=== PATIENT | female | born 1980 | race Caucasian/White ===

== ENCOUNTER 2019-11-06 09:25 | Emergency (ER) | payer MEDICAID ==
[2019-11-06] MEDS ORDERED: KETOROLAC 60 MG/2 ML VIAL IM STA (10:27)
[2019-11-06 10:48] LABS: BILIRUBIN,URINE NEGATIVE (NEGATIVE); GLUCOSE, URINE (UA) NEGATIVE (NEGATIVE); KETONES,URINE (UA) NEGATIVE (NEGATIVE); LEUKOCYTE ESTERASE, URINE NEGATIVE (NEGATIVE); NITRITE,URINE NEGATIVE (NEGATIVE); OCCULT BLOOD,URINE TRACE-LYSE (NEGATIVE); PROTEIN,URINE NEGATIVE (NEGATIVE); UROBILINOGEN,URINE 0.2 (NORMAL) E.U./dL (NORMAL)
[2019-11-06 10:49] LABS: CLARITY,URINE CLEAR (CLEAR)
[2019-11-06 10:51] LABS: HCG UR QUAL NEGATIVE
[2019-11-06 11:01] LABS: BASOPHILS % (AUTO) 0.9 %; EOSINOPHILS # (AUTO) 0.1 10^3/uL (0.0-0.7); EOSINOPHILS % (AUTO) 2.8 %; HGB - HEMOGLOBIN 13.6 g/dL (12.0-16.0); LYMPHOCYTES # (AUTO) 1.5 10^3/uL (1.5-3.5); LYMPHOCYTES % (AUTO) 33.3 %; MEAN CORPUSCULAR HEMOGLOBIN 30.7 pg (27.0-31.0); MEAN CORPUSCULAR HGB CONC 33.3 g/dL (32.0-36.0); MEAN CORPUSCULAR VOLUME 92.3 fL (81.0-99.0); MEAN PLATELET VOLUME 8.2 fL (7.9-10.8); MONOCYTES # (AUTO) 0.2 10^3/uL (0.0-1.0); MONOCYTES % (AUTO) 5.2 %; NEUTROPHILS # (AUTO) 2.6 10^3/uL (1.5-6.6); NEUTROPHILS % (AUTO) 57.6 %; PLT - PLATELET COUNT 213 10^3/uL (130-450); RED BLOOD COUNT 4.43 10^6/uL (4.20-5.40); RED CELL DISTRIBUTION WIDTH 11.9 % (12.0-15.0); WHITE BLOOD COUNT 4.6 x10^3/uL (4.8-10.8)
[2019-11-06 11:14] LABS: ALBUMIN 5.4 g/dL (3.2-5.5); ALBUMIN/GLOBULIN RATIO 2.2 (1.0-2.2); CALCIUM 9.3 mg/dL (8.5-10.3); CREATININE 0.9 mg/dL (0.4-1.0); TOTAL PROTEIN 7.9 g/dL (6.7-8.2)
--- NOTE | 2019-11-06 11:44 | CT Report ---
PROCEDURE: HEAD WO INDICATIONS: headache, confusion left sided TECHNIQUE: Noncontrast 4.5 mm thick angled axial sections acquired from the foramen magnum to the vertex. For r adiation dose reduction, the following was used: automated exposure control, adjustment of mA and/or kV according to patient size. COMPARISON: None. FINDINGS: Image quality: Excellent. CSF spaces: Basal cisterns are patent. No extra-axial fluid collections. Ventricles are normal in size and shape. Brain: No midline shift. No intracranial masses or hemorrhage. Solitario-white matter interface is norm al. Skull and face: Calvarium and visualized facial bones are intact, without suspicious lesions. Sinuses: Visualized sinuses and mastoids are clear. IMPRESSION: No acute intracranial abnormality. Reviewed by: Shayy Tellez MD on 11/06/2019 11:43 AM PDT Approved by: Shayy Tellez MD on 11/06/2019 11:43 AM PDT Station ID: [id number]
--- NOTE | 2019-11-06 12:13 | ED Physician Documentation ---
PD HPI HEADACHE - Stated complaint Stated Complaint: HIGH BP/HEADACHE - Chief complaint Chief Complaint: Cardiac - History obtained from History obtained from: Patient - History of Present Illness Timing - onset: Enter time (1500), Yesterday Timing - onset during: Light activity Timing - duration: Days (1) Timing - details: Gradual onset, Still present Location: Left Quality: Throbbing Associated symptoms: No: Fever, Stiff neck, Nausea, Vomiting, Weakness, Numbness, Syncope, Seizure, Eye pain, Vision changes Improved by: Rest, Dark room Worsened by: Moving Contributing factors: Hypertension Similar symptoms before: Has not had sx before Recently seen: Not recently seen - Additional information Additional information: 39-year-old female with a 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 She has been on some Paxil for the last year and she forgot to take her dose yesterday morning and by midafternoon she is developed this headache in the left side of her head and she noted her blood pressure to be elevated. When her blood pressure did not come down and her headache persisted this morning she is come to the emergency department she remembers thinking that she did not take her Paxil yesterday and she got her purse out to take her Paxil and then she got distracted she does pretty certain she did not take her Paxil this morning either. Review of Systems Constitutional: denies: Fever Eyes: denies: Decreased vision Ears: denies: Ear pain Nose: denies: Congestion Throat: denies: Sore throat Cardiac: denies: Chest pain / pressure, Palpitations Respiratory: denies: Dyspnea, Cough GI: denies: Abdominal Pain, Nausea, Vomiting : denies: Dysuria, Frequency Skin: denies: Rash Musculoskeletal: reports: Neck pain. denies: Back pain, Extremity pain Neurologic: reports: Headache. denies: Generalized weakness, Focal weakness, Numbness, Head injury, LOC PD PAST MEDICAL HISTORY - Past Medical History Past Medical History: No - Past Surgical History Past Surgical History: No - Present Medications Home Medications: Ambulatory Orders Medication Instructions Recorded Confirmed Cyclobenzaprine [Flexeril] 10 mg PO TID PRN #20 tablet 11/06/19 Hydrocodone/Acetaminophen 1 - 2 each PO Q6H PRN #14 tablet 11/06/19 [Hydrocodon-Acetaminophen 5-325] - Allergies Allergies/Adverse Reactions: Allergies Allergy/AdvReac Type Severity Reaction Status Date / Time No Known Drug Allergies Allergy Verified 11/06/19 09:32 - Social History Does the pt smoke?: No Smoking Status: Never smoker Does the pt drink ETOH?: No Does the pt have substance abuse?: No PD ED PE NORMAL - Vitals Vital signs reviewed: Yes (hypertensive) - General General: Alert and oriented X 3, No acute distress, Well developed/nourished - HEENT HEENT: Atraumatic, PERRL, EOMI, Ears normal, Moist mucous membranes, Pharynx benign, Dentition benign - Neck Neck: Supple, no meningeal sign, No bony TTP, Other (There is tenderness along the trapezius into the insertion to the occiput. 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, No motor deficit, No sensory deficit, Normal speech Eye Opening: Spontaneous Motor: Obeys Commands Verbal: Oriented GCS Score: 15 - Psych Psych: Normal mood, Normal affect Results - Vitals Vitals: Vital Signs - 24 hr 11/06/19 11/06/19 11/06/19 09:32 09:36 11:36 Temperature 36.8 C Heart Rate 84 69 Respiratory 16 14 Rate Blood Pressure 140/90 H 132/89 H Blood Pressure 157/109 H [Left] O2 Saturation 99 99 11/06/19 12:37 Temperature 36.8 C Heart Rate 70 Respiratory 16 Rate Blood Pressure 135/75 H Blood Pressure [Left] O2 Saturation 99 Oxygen O2 Source Room air - Labs Labs: Laboratory Tests 11/06/19 11/06/19 11/06/19 10:41 10:56 10:56 WBC 4.6 L RBC 4.43 Hgb 13.6 Hct 40.9 MCV 92.3 MCH 30.7 MCHC 33.3 RDW 11.9 L Plt Count 213 MPV 8.2 Neut # (Auto) 2.6 Lymph # (Auto) 1.5 [place] # (Auto) 0.2 Eos # (Auto) 0.1 Baso # (Auto) 0.0 Absolute Nucleated RBC 0.00 Nucleated RBC % 0.0 Sodium 137 Potassium 3.8 Chloride 100 L Carbon Dioxide 27 Anion Gap 10.0 BUN 15 Creatinine 0.9 Estimated GFR (MDRD) 70 L Glucose 91 Calcium 9.3 Total Bilirubin 1.0 AST 19 ALT 18 Alkaline Phosphatase 57 Total Protein 7.9 Albumin 5.4 Globulin 2.5 Albumin/Globulin Ratio 2.2 Lipase 33 Urine Color YELLOW Urine Clarity CLEAR Urine pH 7.0 Ur Specific [place] 1.010 Urine Protein NEGATIVE Urine Glucose (UA) NEGATIVE Urine Ketones NEGATIVE Urine Occult Blood TRACE-LYSE Urine Nitrite NEGATIVE Urine Bilirubin NEGATIVE Urine Urobilinogen 0.2 (NORMAL) Ur Leukocyte Esterase NEGATIVE Ur Microscopic Review NOT INDICATED Urine Culture Comments NOT INDICATED Urine HCG, Qual NEGATIVE - Rads (name of study) CT head Radiology: Prelim report reviewed (Impression: No acute intracranial abnormality.), EMP read indepedently, See rad report PD MEDICAL DECISION MAKING - ED course Complexity details: reviewed results, re-evaluated patient, considered differential, d/w patient ED course: 39-year-old female with a headache nausea and difficulty concentrating is concerned with pain in her neck radiating into her head and hypertension. On evaluation the patient does appear to have greater occipital neuritis with tension in the trapezius pinching the site at the insertion to the occiput. I suspect this is the reason for her headache.I thought it reasonable to do the CT scan of her head and this study was of course without specific findings.This was especially reassuring to the patient. She did get a dose of Toradol with some improvement in her headache. The patient is complaining of some difficulty in concentrating and generally having a hard time describing her symptoms. She has discontinued her Paxil accidentally 2 days ago and I suspect this may be a portion of her issue. She has taken her own Paxil here in the emergency department and over the course of her work-up she improves. Departure - Departure Disposition: 01 Home, Self Care Clinical Impression: Tension headache, Selective serotonin reuptake inhibitor (SSRI) discontinuation syndrome Condition: Stable Instructions: SSRIs, ED Headache Tension Follow-Up: Uriel Buenrostro MD [Primary Care Provider] - Prescriptions: Cyclobenzaprine [Flexeril] 10 mg PO TID PRN #20 tablet PRN Reason: Spasms Hydrocodone/Acetaminophen [Hydrocodon-Acetaminophen 5-325] 1 - 2 each PO Q6H PRN #14 tablet PRN Reason: pain Discharge Date/Time: 11/06/19 12:39
[2019-11-06 12:38] VITALS: BP 135/75
== END 2019-11-06 12:39 | disposition home or self-care (01) ==
LOC: ED 09:25
DX: G44.209 Tension-type headache, unspecified, not intractable (principal); M54.2 Cervicalgia; T43.226A Underdosing of selective serotonin reuptake inhibitors, initial encounter; Z91.138 Patient's unintentional underdosing of medication regimen for other reason; I10 Essential (primary) hypertension
CPT/HCPCS: 36415; 70450; 80053; 81001; 81003; 81025; 83690; 85025; 87086; 96372; 99284

== ENCOUNTER 2020-02-29 16:36 | Outpatient (CLI) | payer MEDICAID | END 2020-02-29 16:37 | disposition home or self-care (01) | LOC: COV 16:36 | PROVIDERS: ATTEND Family Medicine | DX: R11.2 Nausea with vomiting, unspecified (principal); J02.9 Acute pharyngitis, unspecified; M79.10 Myalgia, unspecified site; R53.83 Other fatigue; Z20.828 Contact with and (suspected) exposure to other viral communicable diseases ==

== ENCOUNTER 2020-04-19 08:00 | Outpatient (CLI) | payer MEDICAID | END 2020-04-19 23:59 | LOC: LAB.N 08:00 | PROVIDERS: ATTEND Physician Assistant Medical | DX: N30.00 Acute cystitis without hematuria (principal) | CPT/HCPCS: 87086; 87181 ==

== ENCOUNTER 2020-04-19 11:45 | Outpatient (CLI) | payer MEDICAID | END 2020-04-19 23:59 | disposition home or self-care (01) | LOC: LAB.R 11:45 | PROVIDERS: ATTEND Physician Assistant Medical | DX: N30.00 Acute cystitis without hematuria (principal) | CPT/HCPCS: 81599; 87491; 87591 ==

== ENCOUNTER 2020-10-26 12:08 | Outpatient (CLI) | payer OTHER ==
[2020-10-26 12:26] LABS: BASOPHILS % (AUTO) 0.6 %; EOSINOPHILS # (AUTO) 0.2 10^3/uL (0.0-0.7); EOSINOPHILS % (AUTO) 2.3 %; HCT - HEMATOCRIT 39.2 % (37.0-47.0); HGB - HEMOGLOBIN 13.3 g/dL (12.0-16.0); LYMPHOCYTES # (AUTO) 1.8 10^3/uL (1.5-3.5); LYMPHOCYTES % (AUTO) 27.7 %; MEAN CORPUSCULAR HEMOGLOBIN 30.7 pg (27.0-31.0); MEAN CORPUSCULAR HGB CONC 33.9 g/dL (32.0-36.0); MEAN CORPUSCULAR VOLUME 90.5 fL (81.0-99.0); MEAN PLATELET VOLUME 8.7 fL (7.9-10.8); MONOCYTES # (AUTO) 0.5 10^3/uL (0.0-1.0); MONOCYTES % (AUTO) 7.1 %; PLT - PLATELET COUNT 258 10^3/uL (130-450); RED BLOOD COUNT 4.33 10^6/uL (4.20-5.40); RED CELL DISTRIBUTION WIDTH 11.9 % (12.0-15.0); WHITE BLOOD COUNT 6.5 x10^3/uL (4.8-10.8)
[2020-10-26 12:43] LABS: ALBUMIN 4.6 g/dL (3.2-5.5); ALBUMIN/GLOBULIN RATIO 1.4 (1.0-2.2); BILIRUBIN,TOTAL 0.8 mg/dL (0.2-1.0); CALCIUM 9.4 mg/dL (8.5-10.3); CREATININE 0.8 mg/dL (0.4-1.0)
[2020-10-26 12:54] LABS: THYROID STIMULATING HORMONE 1.44 uIU/mL (0.34-5.60)
== END 2020-10-26 12:09 | disposition home or self-care (01) ==
LOC: LAB 12:08
PROVIDERS: ATTEND Family Medicine
DX: F32.9 Major depressive disorder, single episode, unspecified (principal); F41.9 Anxiety disorder, unspecified
CPT/HCPCS: 36415; 80053; 84443; 85025

== ENCOUNTER 2020-11-10 07:27 | Outpatient (CLI) | payer OTHER ==
--- NOTE | 2020-11-10 09:31 | Ultrasound Report ---
PROCEDURE: Pelvic w/Transvaginal INDICATIONS: IUD SURVEILLANCE TECHNIQUE: Real-time scanning was performed of the pelvic organs, with image documentation. Additional endovagi nal scanning was necessary due to incomplete visualization of the adnexal and endometrial structures by transabdominal scanning. COMPARISON: None. FINDINGS: No pathologic free abdominal or pelvic fluid. Uterus: Uterus is normal in size at 3.5 x 4.7 x 7.8 cm. IJ is in normal expected position. No uterin e mass. The endometrium measures 6 mm in combined thickness. Ovaries: Numerous subcentimeter follicles are the peripheral aspect of both ovaries (greater than 12 and each ovary). No solid adnexal or ovarian mass. IMPRESSION: Normal position of IUD. Numerous subcentimeter cysts at the peripheral aspect of both ovaries, findings which suggest a cysti c ovarian syndrome in the appropriate clinical setting. Reviewed by: Andrea Cabrera MD on 11/10/2020 9:30 AM PDT Approved by: Andrea Cabrera MD on 11/10/2020 9:30 AM PDT Station ID: [id number]
== END 2020-11-10 07:28 | disposition home or self-care (01) ==
LOC: DI 07:27
PROVIDERS: ATTEND Family Medicine
DX: Z30.431 Encounter for routine checking of intrauterine contraceptive device (principal); N83.202 Unspecified ovarian cyst, left side; N83.201 Unspecified ovarian cyst, right side

== ENCOUNTER 2020-12-08 15:20 | Emergency (ER) | payer OTHER ==
[2020-12-08 15:55] LABS: BILIRUBIN,URINE NEGATIVE (NEGATIVE); GLUCOSE, URINE (UA) NEGATIVE (NEGATIVE); KETONES,URINE (UA) NEGATIVE (NEGATIVE); LEUKOCYTE ESTERASE, URINE NEGATIVE (NEGATIVE); NITRITE,URINE NEGATIVE (NEGATIVE); OCCULT BLOOD,URINE NEGATIVE (NEGATIVE); PROTEIN,URINE NEGATIVE (NEGATIVE); UROBILINOGEN,URINE 0.2 (NORMAL) E.U./dL (NORMAL)
[2020-12-08 15:56] LABS: BASOPHILS # (AUTO) 0.1 10^3/uL (0.0-0.1); BASOPHILS % (AUTO) 0.8 %; EOSINOPHILS # (AUTO) 0.1 10^3/uL (0.0-0.7); EOSINOPHILS % (AUTO) 2.2 %; LYMPHOCYTES # (AUTO) 2.2 10^3/uL (1.5-3.5); MEAN CORPUSCULAR HGB CONC 33.3 g/dL (32.0-36.0); MEAN CORPUSCULAR VOLUME 90.1 fL (81.0-99.0); MEAN PLATELET VOLUME 8.5 fL (7.9-10.8); MONOCYTES # (AUTO) 0.4 10^3/uL (0.0-1.0); MONOCYTES % (AUTO) 6.3 %; NEUTROPHILS # (AUTO) 3.6 10^3/uL (1.5-6.6); NEUTROPHILS % (AUTO) 56.5 %; PLT - PLATELET COUNT 249 10^3/uL (130-450); RED BLOOD COUNT 4.33 10^6/uL (4.20-5.40); RED CELL DISTRIBUTION WIDTH 12.1 % (12.0-15.0); WHITE BLOOD COUNT 6.4 x10^3/uL (4.8-10.8)
[2020-12-08 15:58] LABS: CLARITY,URINE CLEAR (CLEAR); HCG UR QUAL NEGATIVE
[2020-12-08 16:10] LABS: ALBUMIN 4.7 g/dL (3.2-5.5); ALBUMIN/GLOBULIN RATIO 1.3 (1.0-2.2); BILIRUBIN,TOTAL 0.8 mg/dL (0.2-1.0); CALCIUM 9.4 mg/dL (8.5-10.3); CREATININE 0.9 mg/dL (0.4-1.0); POTASSIUM 4.1 mmol/L (3.5-5.0); TOTAL PROTEIN 8.3 g/dL (6.7-8.2)
--- NOTE | 2020-12-08 16:49 | ED Physician Documentation ---
PD HPI ABD PAIN - Stated complaint Stated Complaint: ABD PX - Chief complaint Chief Complaint: Abd Pain - History obtained from History obtained from: Patient - Additional information Additional information: 40-year-old woman with 5-year-old IUD, Mirena presents with increasing left pelvic pain. Is been going on for a few weeks but is acutely worse over the last few days. She has a known cyst versus follicles on that side. Her primary said cyst, her [employer] rep said follicles. Her primary was going to remove her IUD but could not find the strings. Subsequently an ultrasound showed it in no rmal position, and went to see the [employer] rep about that but [employer] rep did no exam and the IUD is still in place and she would like it removed. Declines pain medication. Sent here from urgent care to evaluate for potential torsion. Review of Systems Ten Systems: 10 systems reviewed and negative Constitutional: reports: Reviewed and negative Throat: reports: Reviewed and negative Cardiac: reports: Reviewed and negative PD PAST MEDICAL HISTORY - Past Surgical History Past Surgical History: No - Present Medications Home Medications: Ambulatory Orders Medication Instructions Recorded Confirmed Cyclobenzaprine [Flexeril] 10 mg PO TID PRN #20 tablet 11/06/19 Hydrocodone/Acetaminophen 1 - 2 each PO Q6H PRN #14 tablet 11/06/19 [Hydrocodon-Acetaminophen 5-325] - Allergies Allergies/Adverse Reactions: Allergies Allergy/AdvReac Type Severity Reaction Status Date / Time No Known Drug Allergies Allergy Verified 12/08/20 15:37 - Social History Does the pt smoke?: No Smoking Status: Never smoker Does the pt drink ETOH?: No Does the pt have substance abuse?: No PD ED PE NORMAL - Vitals Vital signs reviewed: Yes - General General: Alert and oriented X 3, No acute distress - HEENT HEENT: PERRL, EOMI - Neck Neck: Supple, no meningeal sign, No bony TTP - Cardiac Cardiac: RRR, No murmur - Respiratory Respiratory: No respiratory distress, Clear bilaterally - Abdomen Abdomen: Other (Mild left pelvic tenderness without surgical signs) - Female Female : Other (Pelvic exam done with Yuki LEDESMA present and chaperoning. Nontender on bimanual exam, she requested her IUD removed and queried 3 times if she was sure and she did and was removed during exam.) - Back Back: No CVA TTP, No spinal TTP - Derm Derm: Normal color, Warm and dry - Extremities Extremities: No edema, No calf tenderness / cord - Neuro Neuro: Alert and oriented X 3, Normal speech Results - Vitals Vitals: Vital Signs - 24 hr 12/08/20 15:35 Temperature 35.9 C L Heart Rate 71 Respiratory 14 Rate Blood Pressure 139/92 H O2 Saturation 99 Oxygen O2 Source Room air - Labs Labs: Laboratory Tests 12/08/20 12/08/20 12/08/20 15:39 15:52 15:52 WBC 6.4 RBC 4.33 Hgb 13.0 Hct 39.0 MCV 90.1 MCH 30.0 MCHC 33.3 RDW 12.1 Plt Count 249 MPV 8.5 Neut # (Auto) 3.6 Lymph # (Auto) 2.2 [place] # (Auto) 0.4 Eos # (Auto) 0.1 Baso # (Auto) 0.1 Absolute Nucleated RBC 0.00 Nucleated RBC % 0.0 Sodium 133 L Potassium 4.1 Chloride 97 L Carbon Dioxide 26 Anion Gap 10.0 BUN 14 Creatinine 0.9 Estimated GFR (MDRD) 70 L Glucose 99 Calcium 9.4 Total Bilirubin 0.8 AST 23 ALT 26 Alkaline Phosphatase 70 Total Protein 8.3 H Albumin 4.7 Globulin 3.6 Albumin/Globulin Ratio 1.3 Lipase 26 Urine Color YELLOW Urine Clarity CLEAR Urine pH 7.0 Ur Specific [place] 1.010 Urine Protein NEGATIVE Urine Glucose (UA) NEGATIVE Urine Ketones NEGATIVE Urine Occult Blood NEGATIVE Urine Nitrite NEGATIVE Urine Bilirubin NEGATIVE Urine Urobilinogen 0.2 (NORMAL) Ur Leukocyte Esterase NEGATIVE Ur Microscopic Review NOT INDICATED Urine Culture Comments NOT INDICATED Urine HCG, Qual NEGATIVE PD MEDICAL DECISION MAKING - ED course ED course: 40-year-old woman presents with ongoing pelvic issues now worse. 1 concern is that for torsion but there is no evidence of that on ultrasound. Pelvic ultrasound was grossly normal. She wanted her IUD removed and after that was removed she felt like she was improving. Departure - Departure Disposition: 01 Home, Self Care Clinical Impression: Pelvic pain, Encounter for IUD removal Condition: Good Record reviewed to determine appropriate education?: Yes Instructions: ED Pelvic Pain [facility] Comments: Either way follow-up with your [employer] rep for consideration of repeat exam and also permanent control. Return for new or worsening symptoms. Ibuprofen as needed for pain.
--- NOTE | 2020-12-08 18:23 | Ultrasound Report ---
PROCEDURE: Pelvic w/Transvag+Doppler Comp INDICATIONS: Pelvic pain TECHNIQUE: Real-time scanning was performed of the pelvic organs, with image documentation. Additional endovagi nal scanning was necessary due to incomplete visualization of the adnexal and endometrial structures by transabdominal scanning. COMPARISON: 11/10/2020 FINDINGS: No pathologic free abdominal or pelvic fluid. Uterus: Uterus is normal in size. No uterine mass. The endometrium measures 10 mm in combined thickn ess. Small amount of uterine cavity fluid. Ovaries: Normal appearance of both ovaries. Small bilateral ovarian follicles. No dominant or large ovarian cyst. No solid adnexal or ovarian mass. Normal blood flow to both ovaries. IMPRESSION: Small amount of uterine cavity fluid, of unknown clinical significance but not unexpected in the sett ing of recent IUD removal. No ovarian or adnexal mass. No findings of ovarian torsion. Reviewed by: Andrea Cabrera MD on 12/08/2020 6:22 PM PDT Approved by: Andrea Cabrera MD on 12/08/2020 6:22 PM PDT Station ID: [id number]
[2020-12-08 18:39] VITALS: BP 124/77
== END 2020-12-08 18:43 | disposition home or self-care (01) ==
LOC: ED 15:20
DX: R10.814 Left lower quadrant abdominal tenderness (principal); Z30.432 Encounter for removal of intrauterine contraceptive device
CPT/HCPCS: 36415; 58301; 80053; 81001; 81003; 81025; 83690; 85025; 87086; 93975; 99283; 99284